=== PATIENT | female | born 1940 | race Caucasian/White ===

== ENCOUNTER 2018-06-14 09:40 | Emergency (ER) | payer MEDICARE, OTHER ==
--- NOTE | 2018-06-14 11:10 | RAD ---
PA AND LATERAL VIEWS CHEST: Date: 06/14/18 HISTORY: Cough. Mastectomy due to breast cancer in 2001. FINDINGS: The heart size is normal. The aorta is tortuous. There is evidence of old granulomatous disease. The lungs are expanded without focal areas of consolidation, pneumothorax, or pleural effusions. IMPRESSION: No radiographic evidence of acute cardiopulmonary process. POS: [facility]
== END 2018-06-14 11:38 | disposition home or self-care (01) ==
LOC: SCSER 09:40
DX: J06.9 Acute upper respiratory infection, unspecified (principal); E03.9 Hypothyroidism, unspecified; E78.5 Hyperlipidemia, unspecified; I10 Essential (primary) hypertension; Z79.899 Other long term (current) drug therapy
CPT/HCPCS: 71046; 87804

== ENCOUNTER 2018-08-29 08:13 | Outpatient (CLI) | payer MEDICARE, OTHER ==
--- NOTE | 2018-08-29 09:47 | BD ---
BONE MINERAL DENSITY STUDY: HISTORY: Osteoporosis screening. COMPARISON: Bone mineral density study from 2016. FINDINGS: Lumbar Spine: BMD (g/cm2) L1 0.843 T-Score: -1.3 0.9 L2 0.997 T-Score: -0.3 2.2 L3 1.052 T-Score: -0.3 2.3 L4 0.936 T-Score: -1.1 1.5 L1-L4 0.956 T-Score: -0.8 1.7 WHO classification of normal. Change from the comparison examination is -2.7%, statistically signifi cant. Femoral Neck: 0.744 T-Score: -0.9 1.2 Total Femur: 1.013 T-Score: 0.6 2.5 WHO classification of normal. The change from the previous examination is -2.1%. Impression: Normal bone mineral density. POS: [facility]
--- NOTE | 2018-09-01 13:41 | MMO ---
Bilateral MAMMO Bilat Screen [facility]. CLINICAL HISTORY: Patient is 78 years old and is seen for screening. The patient has the following family history of breast cancer: sister, at age 72. The patient has a history of malignant (generic) at age 61. VIEWS: The views performed were: right craniocaudal with tomosynthesis and right mediolateral oblique with tomosynthesis. FILMS COMPARED: The present examination has been compared to prior imaging studies performed at [facility] on 11/09/2013, 11/17/2014, 11/23/2015 and 01/09/2017. MAMMOGRAM FINDINGS: There are scattered fibroglandular densities. There are benign appearing calcifications seen in the right breast. There are no suspicious masses, calcifications or areas of architectural distortion. IMPRESSION: CALCIFICATIONS IN THE RIGHT BREAST ARE BENIGN. A ROUTINE FOLLOW-UP MAMMOGRAM IN 1 YEAR IS RECOMMENDED. THE RESULTS OF THIS EXAM WERE SENT TO THE PATIENT. ACR BI-RADS Category 2 - Benign finding MAMMOGRAPHY NOTE: 1. A negative mammogram report should not delay a biopsy if a dominant of clinically suspicious mass is present. 2. Approximately 10% to 15% of breast cancers are not detected by mammography. 3. Adenosis and dense breasts may obscure an underlying neoplasm.
== END 2018-08-29 08:14 | disposition home or self-care (01) ==
LOC: BICMAMMO 08:13
PROVIDERS: ATTEND Family Medicine
DX: Z12.31 Encounter for screening mammogram for malignant neoplasm of breast (principal); Z13.820 Encounter for screening for osteoporosis; R92.1 Mammographic calcification found on diagnostic imaging of breast; Z85.3 Personal history of malignant neoplasm of breast; Z80.3 Family history of malignant neoplasm of breast
CPT/HCPCS: 77063; 77067; 77080

== ENCOUNTER 2020-03-02 14:47 | Outpatient (CLI) | payer MEDICARE, OTHER ==
--- NOTE | 2020-03-02 15:23 | ULT ---
BILATERAL CAROTID DUPLEX ULTRASOUND: HISTORY: Carotid bruit COMPARISON: 07/31/2016 TECHNIQUE: Grayscale, color-flow and spectral Doppler ultrasound imaging of the extracranial carotid artery syst ems and vertebral arteries was performed bilaterally. FINDINGS: Minimal scattered atherosclerotic plaque in the proximal right internal carotid artery, left common c arotid artery on the right carotid bifurcation and proximal internal carotid artery. The peak systolic velocity in the right ICA measures 72.8 cm/s. The peak systolic velocity in the ri ght CCA measures 115 cm/s. The peak systolic velocity in the left ICA measures 121 cm/s. The peak systolic velocity in the le ft CCA measures 115 cm/s. The right IC/CC ration is0.63. The left IC/CC ratio is 1.1. Vertebral flow: antegrade, bilaterally. . IMPRESSION: No hemodynamically significant stenosis of the left or right carotid artery.
== END 2020-03-02 14:48 | disposition home or self-care (01) ==
LOC: BICULT 14:47
PROVIDERS: ATTEND Physician Assistant Medical
DX: R09.89 Other specified symptoms and signs involving the circulatory and respiratory systems (principal)
CPT/HCPCS: 93880

== ENCOUNTER 2022-07-03 11:21 | Outpatient (CLI) | payer MEDICARE, OTHER | END 2022-07-03 11:22 | disposition home or self-care (01) | LOC: BICMAMMO 11:21 | PROVIDERS: ATTEND Family Medicine | DX: Z12.31 Encounter for screening mammogram for malignant neoplasm of breast (principal); Z90.12 Acquired absence of left breast and nipple; Z80.3 Family history of malignant neoplasm of breast | CPT/HCPCS: 77063; 77067 ==

== ENCOUNTER 2023-09-18 10:49 | Outpatient (CLI) | payer MEDICARE, OTHER | END 2023-09-18 10:50 | disposition home or self-care (01) | LOC: BICMAMMO 10:49 | PROVIDERS: ATTEND Family Medicine | DX: Z12.31 Encounter for screening mammogram for malignant neoplasm of breast (principal); Z80.3 Family history of malignant neoplasm of breast; Z90.12 Acquired absence of left breast and nipple | CPT/HCPCS: 77063; 77067 ==

== ENCOUNTER 2025-02-17 13:08 | Outpatient (CLI) | payer MEDICARE, OTHER | END 2025-02-17 13:09 | disposition home or self-care (01) | LOC: ULT 13:08 | PROVIDERS: ATTEND Family Medicine | DX: N83.201 Unspecified ovarian cyst, right side (principal) | CPT/HCPCS: 76856 ==